=== PATIENT | male | born 1960 | race Two or more races ===

== ENCOUNTER 2018-07-25 18:51 | Emergency (ER) | payer SELFPAY ==
[~2018-07-25] VITALS: Ht 170.2 cm; Wt 75.0 kg
[2018-07-25] MEDS ORDERED: SODIUM CHLORIDE 0.9% 1,000 ML IV ONE (20:59)
[2018-07-25 22:10] LABS: BASOPHILS % 0.2 % (0.0-2.0); EOSINOPHILS % 1.3 % (0.0-5.0); HEMATOCRIT. 29.7 % (42.0-52.0); HEMOGLOBIN. 9.9 g/dL (14.0-18.0); LYMPHOCYTES % 18.1 % (20.0-50.0); MEAN CORPUSCULAR VOLUME 84.3 fL (80.0-94.0); MONOCYTES % 6.6 % (2.0-8.0); NEUTROPHILS % 73.8 % (40.0-76.0); RED BLOOD CELL COUNT 3.53 mill/uL (4.7-6.1); RED CELL DISTRIBUTION WIDTH 16.9 % (11.6-14.6)
[2018-07-25 22:16] LABS: INR 1.4; PARTIAL THROMBOPLASTIN TIME 37.7 sec (23.4-31.0); PROTHROMBIN TIME 13.7 sec (9.1-11.1)
[2018-07-25 22:31] LABS: CHLORIDE 105 mEq/L (98-107); ETHANOL BLOOD < 10 mg/dL
[2018-07-25 22:35] LABS: MEAN PLATELET VOLUME 8.1 fl (7.4-10.4); PLATELET 28 x1000/uL (130-400)
[2018-07-25 22:36] LABS: AMMONIA 111 uMol/L (<32)
[2018-07-26 00:17] LABS: CLARITY URINE CLEAR (CLEAR); COLOR URINE DARK YELLOW (YELLOW); KETONES URINE TRACE (NEGATIVE); LEUKOCYTE ESTERASE URINE NEGATIVE (NEGATIVE); NITRITE URINE NEGATIVE (NEGATIVE); OCCULT BLOOD URINE NEGATIVE (NEGATIVE); PH URINE 6.5 (4.5-8.0); PROTEIN URINE TRACE (NEGATIVE); SPECIFIC GRAVITY URINE 1.024 (1.005-1.030)
[2018-07-26 00:57] LABS: *AMPHETAMINES SCREEN URINE NEGATIVE (NEGATIVE); *BARBITURATES SCREEN URINE NEGATIVE (NEGATIVE); *BENZODIAZEPINES SCREEN URINE NEGATIVE (NEGATIVE); *COCAINE SCREEN URINE NEGATIVE (NEGATIVE); CANNABINOID URINE SCREEN NEGATIVE (NEGATIVE); METHADONE URINE SCREEN PRESUMTIVE POSITIVE (NEGATIVE); OPIATES URINE SCREEN NEGATIVE (NEGATIVE); PHENCYCLIDINE URINE SCREEN NEGATIVE (NEGATIVE)
[2018-07-26 09:27] LABS: PLATELET ESTIMATE MARKEDLY DECREASED
[2018-07-26 09:32] VITALS: BP 124/70
== END 2018-07-26 09:33 | disposition left against medical advice (07) ==
LOC: ER 18:51 → EDBEDREQ 23:33 → EDBEDREQTM 23:33 → ER 07-26 09:33 → CANBEDREQ 07-26 09:35
DX: K72.90 Hepatic failure, unspecified without coma (principal); G92 Toxic encephalopathy; E11.65 Type 2 diabetes mellitus with hyperglycemia; D68.9 Coagulation defect, unspecified; E83.52 Hypercalcemia; D61.818 Other pancytopenia; R94.31 Abnormal electrocardiogram [ECG] [EKG]
CPT/HCPCS: 36415; 70450; 71045; 80053; 80305; 81003; 82140; 82962; 83605; 83690; 83880; 84145; 84484; 85025; 85610; 85730; 87040; 87086; 93005; 96360; 99285; G0482; J7030